=== PATIENT | female | born 1975 | race Caucasian/White ===

== ENCOUNTER 2020-06-22 16:20 | Outpatient (CLI) | payer OTHER, SELFPAY ==
--- NOTE | ~2020-06-22 | XR_ITS ---
EXAMINATION: XR abdomen obstructive series DATE: 06/22/2020 16:43 INDICATION: Bloating. TECHNIQUE: Upright and supine views of the abdomen on 3 radiographs were obtained. COMPARISON: CT abdomen 09/11/2012 FINDINGS: There are no dilated loops of bowel. There is a paucity of stool in the colon. No free intr aperitoneal gas. Calcifications in the pelvis are likely phleboliths. IMPRESSION: 1. Normal bowel gas pattern. Reviewed, dictated and finalized at location A. [employer]
== END 2020-06-22 16:21 | disposition home or self-care (01) ==
PROVIDERS: PCP Family Medicine; Visit Provider Family Medicine
DX: R10.9 Unspecified abdominal pain (principal)
CPT/HCPCS: 74019

== ENCOUNTER 2023-04-16 14:57 | Outpatient (CLI) | payer OTHER, SELFPAY ==
--- NOTE | ~2023-04-16 | XR_ITS ---
XR ankle RT min 3V DATE: 04/16/2023 15:21 INDICATION: Fall 2 months ago. Lateral and medial pain TECHNIQUE: 4 views COMPARISON: None FINDINGS: No fracture or dislocation of the ankle or disruption of the ankle mortise. IMPRESSION: Negative Reviewed, dictated and finalized at location B. IMPRESSION: Negative
== END 2023-04-16 14:58 | disposition home or self-care (01) ==
LOC: CHSIMG 15:00
PROVIDERS: PCP Family Medicine; Visit Provider Family Medicine
DX: S99.911A Unspecified injury of right ankle, initial encounter (principal)
CPT/HCPCS: 73610

== ENCOUNTER 2024-05-19 17:51 | Outpatient (CLI) | payer OTHER, SELFPAY ==
--- NOTE | ~2024-05-19 | XR_ITS ---
EXAMINATION: XR hip RT min 2V DATE: 05/19/2024 18:21 INDICATION: Right hip pain. TECHNIQUE: 2 views of right hip were obtained. COMPARISON: Radiographs 11/28/2014 FINDINGS: Alignment is normal. No fracture. Right hip joint space is normal. IMPRESSION: 1. Normal right hip. Reviewed, dictated and finalized at location A. IMPRESSION: 1. Normal right hip.
--- NOTE | ~2024-05-19 | XR_ITS ---
EXAMINATION: XR knee RT 3V DATE: 05/19/2024 18:21 INDICATION: Right knee pain. TECHNIQUE: 3 views of right knee were obtained. COMPARISON: None. FINDINGS: Alignment is normal. No fracture. Joint spaces are normal. No knee joint effusion. IMPRESSION: 1. Normal right knee. Reviewed, dictated and finalized at location A. IMPRESSION: 1. Normal right knee.
== END 2024-05-19 17:52 | disposition home or self-care (01) ==
PROVIDERS: PCP Family Medicine; Visit Provider Family Medicine
DX: M25.551 Pain in right hip (principal); M25.561 Pain in right knee
CPT/HCPCS: 73502; 73562

== ENCOUNTER 2024-06-11 09:16 | Outpatient (CLI) | payer OTHER, SELFPAY ==
--- NOTE | ~2024-06-11 | XR_ITS ---
EXAMINATION: XR lumbar spine 2-3V DATE: 06/11/2024 09:52 INDICATION: Low back pain. TECHNIQUE: 3 views of lumbar spine were obtained. COMPARISON: None. FINDINGS: There is 3 degrees dextrocurvature lumbar spine. Vertebral body heights are normal. Interve rtebral disc heights are normal. There are Schmorl's nodes at multiple levels. There are endplate ost eophytes at multiple levels. There is multilevel mild facet joint osteoarthritis. IMPRESSION: 1. Mild lumbar spondylosis. Reviewed, dictated and finalized at location A. IMPRESSION: 1. Mild lumbar spondylosis.
[2024-06-11 10:19] LABS: CRP < 0.5 mg/dL (0.0-0.9); Rheumatoid Factor Screen Negative (Negative)
[2024-06-11 10:55] LABS: Erythrocyte Sedimentation Rate 13 mm/hr (0-15)
[2024-06-15 04:23] LABS: ANA Cascade Screen NEGATIVE (NEGATIVE)
== END 2024-06-11 09:17 | disposition home or self-care (01) ==
LOC: CHSLAB 09:20
PROVIDERS: PCP Family Medicine; Visit Provider Family Medicine
DX: M13.0 Polyarthritis, unspecified (principal); M54.9 Dorsalgia, unspecified; M43.06 Spondylolysis, lumbar region
CPT/HCPCS: 36415; 72100; 83516; 85652; 86038; 86140; 86225; 86235; 86430